=== PATIENT | male | born 1940 | race Caucasian/White ===

== ENCOUNTER 2017-09-20 12:14 | Emergency (ER) | payer MEDICARE, OTHER ==
[~2017-09-20] VITALS: Ht 165.1 cm; Wt 70.0 kg
[~2017-09-20 12:14] MED LIST: ASPI-611 PO; DONE-46 PO; NOR5T PO; QUET200T30 PO; ZIPR40CA2 PO; [UNRECOGNIZED DRUG - CODE] RIGHTEYE
[2017-09-20 12:17] VITALS: BP 134/81
[2017-09-20] MEDS ORDERED: clindamycin 150mg capsule PO ONE ×2 (13:45)
[2017-09-20] MEDS ORDERED: CLIN150C2 PO (13:48)
== END 2017-09-20 14:32 | disposition home or self-care (01) ==
LOC: ER 12:14
DX: K04.7 Periapical abscess without sinus (principal); I10 Essential (primary) hypertension; Z79.82 Long term (current) use of aspirin; Z79.899 Other long term (current) drug therapy; Z86.73 Personal history of transient ischemic attack (TIA), and cerebral infarction without residual deficits
CPT/HCPCS: 99283

== ENCOUNTER 2020-04-09 11:53 | Emergency (ER) | payer MEDICARE, OTHER ==
[~2020-04-09] VITALS: Ht 167.6 cm; Wt 65.9 kg
[2020-04-09 12:17] VITALS: BP 182/117
--- NOTE | 2020-04-09 12:39 | NUR ---
PT TO CT VIA WC
== END 2020-04-09 14:06 | disposition home or self-care (01) ==
LOC: ER 11:53
DX: S52.502A Unspecified fracture of the lower end of left radius, initial encounter for closed fracture (principal); S42.035A Nondisplaced fracture of lateral end of left clavicle, initial encounter for closed fracture; F03.90 Unspecified dementia, unspecified severity, without behavioral disturbance, psychotic disturbance, mood disturbance, and anxiety; I10 Essential (primary) hypertension; I63.9 Cerebral infarction, unspecified; Z79.899 Other long term (current) drug therapy; W19.XXXA Unspecified fall, initial encounter; Y93.89 Activity, other specified; Y92.89 Other specified places as the place of occurrence of the external cause; Y99.8 Other external cause status
CPT/HCPCS: 29105; 29125; 70450; 73060; 73090; 99284